=== PATIENT | female | born 1965 | race Hispanic/Latino ===

== ENCOUNTER → 2018-07-03 | Outpatient (CLI) | payer BC ==
[~2018-07-03] MED LIST: ASPI-1181 PO; CLOP75TA14 PO; METO-408 PO; ROSU10TA27 PO
== END | disposition home or self-care (01) ==
LOC: SHCH 13:41
PROVIDERS: ATTEND Internal Medicine Cardiovascular Disease
DX: I51.7 Cardiomegaly (principal); I35.1 Nonrheumatic aortic (valve) insufficiency; I25.10 Atherosclerotic heart disease of native coronary artery without angina pectoris
CPT/HCPCS: 93306

== ENCOUNTER → 2018-07-10 | Outpatient (CLI) | payer BC ==
[~2018-07-10] MED LIST changes: +REGADENOSON 0.4 MG/5 ML PF SYG IVP SCH
== END | disposition home or self-care (01) ==
LOC: SHCH 08:10
PROVIDERS: ATTEND Internal Medicine Cardiovascular Disease
DX: I25.10 Atherosclerotic heart disease of native coronary artery without angina pectoris (principal)
CPT/HCPCS: 78452; 93017; 96374; A9500 ×2; J2785 ×2

== ENCOUNTER 2018-09-08 06:55 | Day surgery (SDC) | payer BC ==
[2018-09-04 12:35] VITALS: BP 154/74
[2018-09-04 13:08] LABS: BASOPHILS % (AUTO) 0.3 % (0.0-5.0); EOSINOPHILS % (AUTO) 0.3 % (0.0-8.0); HEMATOCRIT 44.6 % (42-54); LYMPHOCYTES % (AUTO) 14.2 % (21.0-51.0); MEAN CORPUSCULAR HEMOGLOBIN 30.5 pg (27.0-33.0); MEAN CORPUSCULAR HGB CONC 33.8 g/dL (32.0-36.0); MEAN CORPUSCULAR VOLUME 90.1 fL (79-99); MONOCYTES % (AUTO) 5.8 % (3.0-13.0); NEUTROPHILS % (AUTO) 79.4 % (40.0-77.0); NUCLEATED RED BLOOD CELLS 0.1 % (0.0-0.19); PLATELET COUNT (AUTO) 200 K/uL (130-400); POTASSIUM 4.1 mmol/L (3.5-5.1); RED BLOOD CELL COUNT(AUTO) 4.96 MIL/uL (4.50-6.20); RED CELL DISTRIBUTION WIDTH 13.2 % (11.0-15.5)
[2018-09-04 13:15] LABS: APPEARANCE,URINE CLEAR (CLEAR); BILIRUBIN,URINE NEGATIVE (NEGATIVE); COLOR,URINE YELLOW (YELLOW); GLUCOSE, URINE (UA) 250 mg/dL (NEGATIVE); KETONES,URINE 5 mg/dL (NEGATIVE); LEUKOCYTE ESTERASE ,URINE NEGATIVE (NEGATIVE); NITRATE,URINE NEGATIVE (NEGATIVE); OCCULT BLOOD,URINE NEGATIVE (NEGATIVE); PROTEIN,URINE TRACE mg/dL (NEGATIVE); UROBILINOGEN,URINE 0.2 mg/dL (0.2-1.0)
[2018-09-04 13:50] LABS: INR 0.95 (0.85-1.15)
[2018-09-04 13:56] LABS: BACTERIA,URINE Few /HPF (None Seen); MUCUS,URINE Moderate LPF (None Seen); RBC,URINE None Seen /HPF (0-1); SQUAMOUS EPITHELIAL CELL,UR 0-2 /HPF (0-2); WBC,URINE None Seen /HPF (0-1)
--- NOTE | 2018-09-07 13:59 | NUR ---
SPOKE TO JALIL HSU AND NOTIFIED HIM OF UA OF KETO, BACTERIA FEW, MODERATE MUCUS AND SQUAM EPI 0-2, PT WAS AFEBRILE DAY OF PREOP, PER JALIL HSU NO NEW ORDERS.
[~2018-09-08] VITALS: Ht 165.1 cm; Wt 71.9 kg
[2018-09-08] VITALS (10 sets, daily range): BP systolic 116–146; BP diastolic 71–89
[~2018-09-08 06:55] MED LIST changes: -METO-408 PO; +MULT1CAP32 PO; -REGADENOSON 0.4 MG/5 ML PF SYG IVP SCH
[2018-09-08] MEDS ORDERED: SODIUM CHLORIDE 0.9% 1000ML 1,000 ML IV ONE (07:41)
[2018-09-08] MEDS ORDERED: NITROGLYCERIN 5 MG/ML 10 ML VIAL IV ONE (10:39)
[2018-09-08] MEDS ORDERED: SODIUM BICARB 50MEQ 50ML VIAL ONE (10:39)
[2018-09-08] MEDS ORDERED: IOHEXOL 350 MG/ML 100ML INFUS..BTL IV ONE (10:39)
[2018-09-08] MEDS ORDERED: IOHEXOL-350 50ML VIAL IV ONE (10:39)
[2018-09-08] MEDS ORDERED: LIDOCAINE HCL 2% 20ML ONE (10:40)
--- NOTE | 2018-09-08 10:43 | NUR ---
TO FAMILY SOCIOLOGIST PT TAKEN TO FAMILY SOCIOLOGIST VIA BED BY BARBARA BAIN RN AND STEPHANIE SHULTZ RN. PT STABLE. NO COMPLAINTS MADE.
[2018-09-08] MEDS ORDERED: SODIUM CHLORIDE 0.9% 1000ML 1,000 ML IV SCH (11:45)
--- NOTE | 2018-09-08 12:00 | NUR ---
RECEIVE PT RECEIVED FROM INSURANCE AND BENEFITS CLERK VIA BED AWAKE ALERT ORIENTED X3. PT STABLE. NO COMPLAINTS MADE. CATH SITE TO RIGHT GROIN SOFT, DRESSING DRY AND INTACT, NO OOZING NO HEMATOMA NOTED. PT INSTRUCTED TO KEEP RIGHT LEG STRAIGHT AND NOT TO ELEVATE HEAD. PT VERBALIZED UNDERSTANDING.
--- NOTE | 2018-09-08 12:56 | NUR ---
DIET PT TOLERATING DIET WELL, ASSISTING IN FEEDING PT.
--- NOTE | 2018-09-08 16:06 | NUR ---
DISCHARGE PT DISCHARGED VIA WHEELCHAIR WITH . PT STABLE. NO COMPLAINTS MADE. CATH SITE TO RIGHT GROIN REMAINS SOFT, NO OOZING NO HEMATOMA NOTED. DISCHARGE INSTRUCTIONS GIVEN TO AND PT, ALSO DEMONSTRATED TO ON HOW TO MONITOR CATH SITE FOR BLEEDING, HEMATOMA, APPLY DIRECT PRESSURE AND CALL 911. VERBALIZED UNDERSTANDING.
== END 2018-09-08 16:06 | disposition home or self-care (01) ==
LOC: DAH 06:55 → EDSEX 09:00 → DAH 16:06
PROVIDERS: ATTEND Internal Medicine Cardiovascular Disease
DX: I25.118 Atherosclerotic heart disease of native coronary artery with other forms of angina pectoris (principal); Z95.5 Presence of coronary angioplasty implant and graft; Z79.899 Other long term (current) drug therapy; Z98.890 Other specified postprocedural states; K21.9 Gastro-esophageal reflux disease without esophagitis; E78.5 Hyperlipidemia, unspecified; R00.1 Bradycardia, unspecified; Z79.82 Long term (current) use of aspirin; Z79.01 Long term (current) use of anticoagulants; Z88.8 Allergy status to other drugs, medicaments and biological substances
CPT/HCPCS: 36415; 71045; 80048; 81001; 85025; 85610; 85730; 93005; 93458; A4606; C1760; C1894; J1644; J3490 ×3; J7030; Q9965; Q9967 ×2

== ENCOUNTER → 2018-11-26 | Outpatient (CLI) | payer BC ==
[~2018-11-26] MED LIST changes: -ROSU10TA27 PO; +ROSU10TA28 PO
== END | disposition home or self-care (01) ==
LOC: RAH 11:21
PROVIDERS: ATTEND Internal Medicine Cardiovascular Disease
DX: I72.4 Aneurysm of artery of lower extremity (principal); R59.0 Localized enlarged lymph nodes
CPT/HCPCS: 76882

== ENCOUNTER → 2019-08-27 | Outpatient (CLI) | payer BC ==
[2019-08-27 13:47] LABS: CREATININE 1.2 mg/dL (0.5-1.5)
== END | disposition home or self-care (01) ==
LOC: LAB 12:27
PROVIDERS: ATTEND Surgery
DX: R10.2 Pelvic and perineal pain (principal)
CPT/HCPCS: 36415; 82565; 84520

== ENCOUNTER → 2019-09-14 | Outpatient (CLI) | payer BC ==
[~2019-09-14] MED LIST changes: -ASPI-1181 PO; +ASPI-1443 PO; +IOHEXOL 350 MG/ML 100ML INFUS..BTL IV ONE
== END | disposition home or self-care (01) ==
LOC: RAH 08:51
PROVIDERS: ATTEND Surgery
DX: K80.20 Calculus of gallbladder without cholecystitis without obstruction (principal); K76.0 Fatty (change of) liver, not elsewhere classified
CPT/HCPCS: 74177; Q9967

== ENCOUNTER → 2021-07-23 | Outpatient (CLI) | payer BC ==
[~2021-07-23] MED LIST changes: -IOHEXOL 350 MG/ML 100ML INFUS..BTL IV ONE
== END | disposition home or self-care (01) ==
LOC: SHCH 08:34
PROVIDERS: ATTEND Internal Medicine Cardiovascular Disease
DX: I35.1 Nonrheumatic aortic (valve) insufficiency (principal); I25.10 Atherosclerotic heart disease of native coronary artery without angina pectoris
CPT/HCPCS: 93306

== ENCOUNTER → 2021-07-24 | Outpatient (CLI) | payer BC ==
[~2021-07-24] VITALS: Ht 157.5 cm; Wt 73.5 kg
[~2021-07-24] MED LIST changes: +REGADENOSON 0.4 MG/5 ML PF SYG IVP SCH
== END | disposition home or self-care (01) ==
LOC: SHCH 08:02
PROVIDERS: ATTEND Internal Medicine Cardiovascular Disease
DX: I25.10 Atherosclerotic heart disease of native coronary artery without angina pectoris (principal); I10 Essential (primary) hypertension; R06.00 Dyspnea, unspecified
CPT/HCPCS: 78452; 93017; 96374; A9500 ×2; J2785

== ENCOUNTER → 2022-11-04 | Outpatient (CLI) | payer BC ==
[~2022-11-04] MED LIST changes: +CLOP-31 PO; -CLOP75TA14 PO; -REGADENOSON 0.4 MG/5 ML PF SYG IVP SCH
[2022-11-04 12:22] LABS: BASOPHILS % (AUTO) 0.9 % (0.0-5.0); HEMATOCRIT 45.3 % (42-54); LYMPHOCYTES % (AUTO) 30.8 % (21.0-51.0); MEAN CORPUSCULAR HEMOGLOBIN 29.5 pg (27.0-33.0); MEAN CORPUSCULAR HGB CONC 33.8 g/dL (32.0-36.0); MEAN CORPUSCULAR VOLUME 87.3 fL (79-99); MONOCYTES % (AUTO) 5.8 % (3.0-13.0); NEUTROPHILS % (AUTO) 56.1 % (40.0-77.0); PLATELET COUNT (AUTO) 186 K/uL (130-400); RED BLOOD CELL COUNT(AUTO) 5.19 MIL/uL (4.50-6.20); RED CELL DISTRIBUTION WIDTH 13.2 % (11.0-15.5); WHITE BLOOD COUNT (AUTO) 6.9 K/uL (4.8-10.8)
[2022-11-04 12:40] LABS: HEMOGLOBIN A1C 5.5 % (4.0-6.0)
[2022-11-04 12:57] LABS: ALBUMIN 3.9 g/dL (3.5-5.0); THYROID STIMULATING HORMONE 2.25 uIU/mL (0.36-3.74); TOTAL PROTEIN, SERUM 7.6 g/dL (6.0-8.3)
[2022-11-04 13:09] LABS: T4 (THYROXINE) 7.3 ug/dL (4.7-13.3)
== END | disposition home or self-care (01) ==
LOC: LAB 10:33
PROVIDERS: ATTEND Internal Medicine Cardiovascular Disease
DX: E78.5 Hyperlipidemia, unspecified (principal)
CPT/HCPCS: 36415; 80053; 80061; 83036; 84436; 84443; 84479; 85025

== ENCOUNTER 2024-05-31 05:38 | Day surgery (SDC) | payer BC ==
[2024-05-25 10:19] VITALS: BP 143/69; PULSE 75; RESP 18; TEMP 98.4
--- NOTE | 2024-05-25 10:49 | EKG ---
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
[2024-05-25 11:03] LABS: BASOPHILS # (AUTO) 0.06 K/uL (0.00-0.20); BASOPHILS % (AUTO) 0.9 % (0.0-5.0); CREATININE 0.9 mg/dL (0.5-1.3); EOSINOPHILS # (AUTO) 0.22 K/uL (0.00-0.70); EOSINOPHILS % (AUTO) 3.2 % (0.0-8.0); HEMATOCRIT 45.3 % (42-54); IMMATURE GRANULOCYTE ABSOLUTE 0.02 K/uL (0-1); LYMPHOCYTES # (AUTO) 2.3 K/uL (1.0-4.8); MEAN CORPUSCULAR HGB CONC 32.7 g/dL (32.0-36.0); MEAN CORPUSCULAR VOLUME 91.7 fL (79-99); MONOCYTES # (AUTO) 0.4 K/uL (0.1-1.0); MONOCYTES % (AUTO) 6.4 % (3.0-13.0); NEUTROPHILS # (AUTO) 3.9 K/uL (1.8-7.7); NEUTROPHILS % (AUTO) 56.2 % (40.0-77.0); PLATELET COUNT (AUTO) 192 K/uL (130-400); POTASSIUM 4.1 mmol/L (3.5-5.1); RED BLOOD CELL COUNT(AUTO) 4.94 MIL/uL (4.50-6.20); WHITE BLOOD COUNT (AUTO) 6.9 K/uL (4.8-10.8)
[2024-05-25 11:24] LABS: APPEARANCE,URINE CLEAR (CLEAR); BILIRUBIN,URINE NEGATIVE (NEGATIVE); COLOR,URINE YELLOW (YELLOW); GLUCOSE, URINE (UA) NEGATIVE (NEGATIVE); KETONES,URINE NEGATIVE (NEGATIVE); LEUKOCYTE ESTERASE ,URINE NEGATIVE Leu/uL (NEGATIVE); NITRATE,URINE NEGATIVE (NEGATIVE); OCCULT BLOOD,URINE NEGATIVE (NEGATIVE); PH,URINE 6.5 (5.0-8.0); PROTEIN,URINE 20 mg/dL (NEGATIVE); UROBILINOGEN,URINE 0.2 mg/dL (0.2-1.0)
[2024-05-25 11:26] LABS: ADD UA MICROSCOPIC YES
[2024-05-25 11:37] LABS: INR 0.95 (0.85-1.15); PROTHROMBIN TIME 10.7 SEC (9.6-11.6)
[2024-05-25 11:46] LABS: B-TYPE NATRIURETIC PEPTIDE 18 pg/mL (0-100)
--- NOTE | 2024-05-25 12:03 | HMCIMG ---
CHEST 1VW REASON: PREOP COMPARISON: 09/04/2018 FINDINGS: Single view of the chest was obtained. Lungs are clear. Heart size is normal. There is no pulmonary vascular congestion. Mediastinum and bony thorax appear unremarkable. IMPRESSION: 1. Normal single view chest x-ray.
[2024-05-25 12:08] LABS: MUCUS,URINE RARE LPF (None Seen); WBC,URINE 0-1 /HPF (0-1)
[2024-05-31] VITALS (10 sets, daily range): BP systolic 118–143; BP diastolic 71–83; PULSE 63–73; RESP 9–17; TEMP 97.6–98
[~2024-05-31] VITALS: Ht 160 cm; Wt 77.3 kg
[~2024-05-31 05:38] MED LIST changes: -CLOP-31 PO; -ROSU10TA28 PO; +ROSU5TAB51 PO
[2024-05-31] MEDS: 0.9%NACL 1000ML 1,000 ML IV SCH (06:36)
[2024-05-31] MEDS ORDERED: IOHEXOL 350 MG/ML 100ML INFUS..BTL IV ONE (07:02)
[2024-05-31] MEDS ORDERED: LIDOCAINE HCL 400MG/20ML VIAL ONE (07:02)
[2024-05-31] MEDS ORDERED: SODIUM BICARB 50MEQ 50ML VIAL 50 ML ONE (07:02)
[2024-05-31] MEDS ORDERED: HEParin 10,000 UNIT/10ML (1,000 UNIT/ML) VIAL ONE (07:03)
[2024-05-31] MEDS ORDERED: HEParin-NS 1,000 UNIT/500 ML 1,000 ML IV ONE (07:04)
[2024-05-31] MEDS ORDERED: NITROGLYCERIN 50MG VIAL ONE (07:04)
[2024-05-31] MEDS ORDERED: niCARDIpine 25MG INJ IV ONE (07:23)
[2024-05-31] MEDS ORDERED: MEPERIDINE-PF 50 MG/ML SYG ONE (07:30)
[2024-05-31] MEDS ORDERED: MIDAZOLAM HCL 1 MG/ML 2ML VIAL ONE ×2 (07:30→07:56)
[2024-05-31] MEDS ORDERED: 0.9%NACL 1000ML 1,000 ML IV SCH (08:30)
--- NOTE | 2024-05-31 08:37 | CCATH ---
PROCEDURES: * Left heart catheterization. * Selective right and left coronary arteriogram. * Conscious sedation. INDICATIONS: * Recurrent angina. * Abnormal exercise tolerance test. * History of coronary artery disease. * Status post remote LAD stenting. COMPLICATIONS: None. TOTAL CONTRAST: 60 mL. DESCRIPTION OF PROCEDURE: The patient was taken to the cardiac catheterization lab after appropriate operative consents were signed. He was prepped and draped in the usual fashion. After conscious sedation was administered, multiple attempts were made to access the right radial artery, however, that was fairly small vessel. The vessel was accessed on 3 separate occasions; however, the wire could not be advanced. Given that, we elected to proceed with a right femoral approach. At this point, the right common femoral artery region was infiltrated with 2% Xylocaine without epinephrine. A 6-Peruvian sheath was advanced in retrograde fashion by modified Seldinger technique. A 6-Peruvian FR4 diagnostic catheter was advanced over an indwelling wire. This was placed in the left ventricular cavity. Left ventricular end-diastolic pressure measurement was obtained. Ventriculography was deferred. The patient's EF was 50-55% by echocardiography. Pullback revealed no evidence of aortic stenosis. At this point, the catheter was engaged in the ostium of the right coronary artery. Imaging was obtained in multiplane. Right coronary artery was a large vessel and gave rise to an acute marginal PDA and a branching PLVB. The right coronary artery had a proximal 50% lesion, which resulted in some catheter dampening; however, with RUELAS and AMADOR maneuvering, the catheter in slightly different position, the ventricularization abated. Imaging revealed large right coronary artery. Acute marginal was small and had 90% ostial lesion. The PDA and PLVB were normal. At this point, the catheter was withdrawn and an FL4 6-Peruvian catheter was advanced, selectively engaged the ostium of the left main. Left main was imaged in multiplane. There was significant calcification of the left main and the proximal LAD. The left main had a 30% distal tapering. It trifurcated into an LAD, intermediate and circumflex. LAD was a moderately sized vessel that gave rise to several diagonals and septal perforators. The LAD had a stent that is patent in the segment just distal to the first diagonal. The stent was deployed in 06/2016. Intermediate was a moderately large vessel that had an ostial 50% lesion. Circumflex was a moderately sized vessel that gave rise to a moderately large OM with no significant stenotic lesions. At this point, the procedure was completed, Perclose was utilized with good hemostasis. The patient tolerated well and left cardiac catheterization lab in stable condition. FINAL IMPRESSION: * Coronary artery disease. * Patent left anterior descending stent. * No aortic stenosis. PLAN: Continue medical management. TID: [id number] RECEIPT: [id number]
== END 2024-05-31 13:05 | disposition still patient (30) ==
LOC: DAH 05:38
PROVIDERS: ATTEND Internal Medicine Cardiovascular Disease
DX: R94.39 Abnormal result of other cardiovascular function study (principal); I25.118 Atherosclerotic heart disease of native coronary artery with other forms of angina pectoris; I25.84 Coronary atherosclerosis due to calcified coronary lesion; R00.1 Bradycardia, unspecified; E78.5 Hyperlipidemia, unspecified; K21.9 Gastro-esophageal reflux disease without esophagitis; Z79.82 Long term (current) use of aspirin; Z79.899 Other long term (current) drug therapy; Z95.5 Presence of coronary angioplasty implant and graft; Z79.01 Long term (current) use of anticoagulants
CPT/HCPCS: 80048; 83880; 85025; 85610; 85730; 81001; 36415; 71045; 93005; 93458; C1769; C1894 ×3; C1760; Q9965; J3490 ×4; J7030; J1644 ×2; J2250 ×2; J2175; Q9967; A4215; A4222; A4221; A4663; A4216; A4606; A4223 ×3; 96360; 96361; 99156; 99157